=== PATIENT | male | born 1965 | race Caucasian/White ===

== ENCOUNTER 2024-04-06 04:54 | Emergency (ER) | payer OTHER, SELFPAY ==
--- OUTSIDE RECORDS SUMMARY | 2024-04-06 04:57 | XMS_ITS | Clinical Summary ---
Author Organization [facility] Address [address] [place] [id number] Care Team Providers Care Apparatus Operator Name Role Phone Pcp, No Unavailable Unavailable Pcp, No Primary Care Provider Unavailabl e Allergies No known active allergies Medications nicotine 14 mg/24 hr (NICODERM; HABITROL) 14 mg/24 hr patchIndicatio ns:Smoker Apply 1 Patch on dry, clean, hairless skin once daily. For six weeks then decrease to 7mg patch 42 Patch 8 Active HYDROcodone-ac etaminophen, 5-325 mg, (NORCO) per tabletIndicati ons:Acute left-sided low back pain without sciatica Take 1 tablet by mouth every 4 hours if needed for Pain Max acetaminophen dose: 4000 mg in 24 hrs. 12 tablet 8 Active Active Problems No known active problems Immunizations Name Administration Dates Next Due Tdap 05/05/2012 Family History Medical History Relation Name Comments Cancer Father lung Good Health Mother Relation Name Status Comments Father Mother Social History Tobacco Use Types Packs/Day Years Used Date Smoking Tobacco: Every Day Cigarettes 1 5 Smokeless Tobacco: Never Tobacco Cessation:Ready to Q uit: No; Counseling Given: Yes Alcohol Use Standard Drinks/Week Comments Yes 0 (1 standard drink = 0.6 oz pur e alcohol) rare Interpersonal Safety Answer Date Record ed Are you being hit, kicked, p ushed or yelled at (see row info)? 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 Gender Identity Not on file Sexual Orientation Not on file Obstetrics History Last Filed Vital Signs Vital Sign Reading Time Taken Comments Blood Pressure 143/87 09/24/2023 6:00 AM CDT Pulse 81 09/24/2023 6:00 AM CDT Temperature 37 C (98.6 F) 09/23/2023 11:42 PM CDT Respiratory Rate 20 09/23/2023 11:48 PM CDT Oxygen Saturation 96% 09/24/2023 6:00 AM CDT Inhaled Oxygen Concentration - - Weight 78.5 kg (173 lb) 09/23/2023 11:42 PM CDT Height 172.7 cm (5' 8) 09/23/2023 11:42 PM CDT Body Mass Index 26.3 09/23/2023 11:42 PM CDT Plan of Treatment Health Maintenance Due Date Last Done Comments Depression screening for age 12+ 1977 HIV for age 15-65 1980 Hepatitis C screening for age 18-79 08/29/1983 Colonoscopy through age 75 2010 Lipids for age 45-75 2010 Pneumococcal series for age 50+ (1 of 1 - PCV) 016 Zoster (shingles) series for age 50+ (1 of 2) 08/29/19 16 BMI (ht and wt on same day) for age 18+ 06/23/2018 0 06/23/2017 Tetanus booster 05/05/2022 05/05/2012 COVID-19 vaccine series ( season) 4 Influenza for age 50-64 10/10/2023 Tdap Completed 05/05/2012 Insurance [facility] Care Teams Apparatus Operator Relationship Specialty Start Date End Date Pcp, No . PCP - General 08/20/22 Pcp, No . 02/25/11
[2024-04-06 05:01] VITALS: BP 164/89; PULSE 95; RESP 18; TEMP 36.9; O2SAT 96; BMI 25.8
--- OUTSIDE RECORDS SUMMARY | 2024-04-06 05:39 | XMS_ITS | Clinical Summary ---
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 PCP - General 08/20/22 Pcp, No . 02/25/11
[2024-04-06 05:54] LABS: Basophils Absolute Auto 0.02 K/uL (0.00-0.30); Basophils Percent Auto 0.3 % (0.0-3.0); Eosinophils Absolute Auto 0.09 K/uL (0.00-0.50); Eosinophils Percent Auto 1.3 % (0.0-7.0); Hemoglobin* 15.2 gm/dL (13.5-17.5); Immature Granulocytes Abs Auto 0.01 K/uL (0.00-0.30); Immature Granulocytes Pct Auto 0.1 %; Lymphocytes Percent Auto 22.3 % (20-44); Mean Corpuscular HGB Conc 34 gm/dL (32-36); Mean Corpuscular Hemoglobin 29 pg (26-34); Mean Corpuscular Volume 86 fL (80-100); Monocytes Percent Auto 9.1 % (0.0-11.0); Neutrophils Absolute Auto 4.51 K/uL (1.7-7.0); Neutrophils Percent Auto 66.9 % (42.0-72.0); Platelet Count* 222 K/uL (140-440); RDW Coefficient of Variation % 12.9 % (11.5-15.5); Red Blood Count 5.24 m/uL (4.30-5.90); White Blood Count* 6.74 K/uL (4.50-11.00)
[2024-04-06 05:56] LABS: Slide Review Reflex No
[2024-04-06 05:59] LABS: Creatinine, Point-of-Care* 0.7 mg/dl (0.6-1.3)
[2024-04-06 06:00] VITALS: TEMP 36.9
[2024-04-06] MEDS: CYCLOBENZAPRINE HCL 10 MG TABLET PO (06:00)
[2024-04-06] MEDS: TRAMADOL HCL 50 MG TABLET PO (06:00)
[2024-04-06] MEDS: ACETAMINOPHEN 500 MG TABLET 1000 MG PO (06:00)
[2024-04-06] MEDS: DOXYCYCLINE HYCLATE 100 MG PO (06:00)
[2024-04-06] MEDS: SULFA/TRIMETHOPRIM 800/160 1 TAB PO (06:00)
--- NOTE | 2024-04-06 06:00 | ED_ITS ---
HPI - General Adult General Chief complaint: Skin/Abscess/Foreign Body Stated complaint: Scalded R foot on 03/31/24 Time Seen by Provider: 04/06/24 05:10 Source: patient and family Mode of arrival: ambulatory Limitations: no limitations History of Present Illness HPI narrative: 58-year-old male presents the emergency department 6 days after he burned the top of his right foot. Noticing increasing redness, worried about infection. Foot is painful, has been taking 6 Aleve per day with minimal relief. No history of peripheral vascular disease but he is a pack-a-day smoker for many decades. Denies any long-term health problems, no prescription medications. Does not get regular physicals. No allergies. marked an area of upper cellulitis on his leg 2 days ago, could not convince him to seek treatment until the wee hours of the morning now. Redness seems to be increasing. Initially started as a small area on the top of the foot which he burned on hot liquid. Initially blistered and is now crusted over. He is not doing any topical treatments. No fevers, no systemic weakness, nausea or other signs of major illness. No prior history of surgery or major injury to the foot or ankle. Benign past medical history but does not typically seek medical care. Smoker. No history of known vascular disease. Not immunocompromised no long-term medications or allergies. ROS is notable for the skin and musculoskeletal symptoms in the foot only, otherwise denies times 12. Related Data Previous Rx's ?Medication ?Instructions ?Recorded cyclobenzaprine 10 mg tablet 10 mg PO HS PRN muscle spasm #14 04/06/24 tabs doxycycline hyclate 100 mg capsule 100 mg PO BID #20 caps 04/06/24 sulfamethoxazole 800 1 tab PO BID 10 days #20 tabs 04/06/24 mg-trimethoprim 160 mg tablet (Bactrim DS) Allergies Allergy/AdvReac Type Severity Reaction Status Date / Time No Known Drug Allergies Allergy Verified 04/06/24 05:04 [facility] Medical History No significant past medical history Surgical History History of hernia repair ?Z98.890 - Other specified postprocedural states (ICD-10) ?Z87.19 - Personal history of other diseases of the digestive system (ICD-10) Social History Smoking Status: Current every day smoker Second hand tobacco smoke exposure: Yes How often do you have a drink containing alcohol: never AUDIT-C Alcohol total score: 0 Non-prescribed substance use: denies use Exam Const: Vital Signs, click to edit/add: Vital Signs - 24 hr 04/06/24 05:01 Temperature 98.5 F Pulse Rate [Right Pulse Oximeter] 95 Respiratory Rate 18 Blood Pressure [Ri ght Upper Arm] 164/89 H Pulse Oximetry 96 Oxygen Delivery Me thod Room Air Documenting provider has reviewed patient's vital signs: yes Common normals: no apparent distress and alert General appearance: cooperative, comfortable and well kempt Other: Nontoxic appearing, good historian. HENMT: Common normals: normocephalic and moist oral mucous membranes Head and scalp: normocephalic Eye: Common normals: conjunctivae normal General eye: normal appearance of both eyes Conjunctiva: conjunctiva(e) normal Neck & C-Spine: General: normal visual inspection Resp: Common normals: normal respiratory effort, no use of accessory muscles and clear to auscultation bilaterally Effort & inspection: able to speak in complete sentences Auscultation: clear to auscultation bilaterally Cardio: Common normals: regular rate and regular rhythm Rate: regular rate Rhythm: regular rhythm Other: 2+ dorsalis pedis pulses, good capillary refill in all toes. Extremity: Other: Right foot examined, normal range of motion in ankle, toes. Mild swelling with moderate erythema noted to the top of the foot with an area of cellulitis that extends there the midfoot, hindfoot and slightly up the anterior tibia area. Area is marked. Excellent dorsalis pedis pulses. There is a 4 x 3 cm area of second-degree burn, full-thickness present with some overlying granulation tissue. No active bleeding. No drainage. No unusual odor. Good capillary refill in all the toes, toes at this point are unaffected. Neuro: Common normals: moves all extremities and no focal motor deficits Sensorium/orientation: alert Speech: speech normal Psych: Appearance: well kempt Attitude: engaged Mood and affect: euthymic mood Insight: fair Judgement: fair Skin: Narrative: Other than the skin lesions to the right foot, no other areas appreciated. Course Course ED Course: 58-year-old male with cellulitis secondary to a second-degree burn on the top of his right foot, delayed treatment, 6 days post injury. Signs of cellulitis and infection but no signs of sepsis. Patient is a chronic smoker, does not seek medical care and has an elevated blood pressure. Because of this I do obtain a point of care creatinine so that I would know that it is safe to dose bone antibiotics like Bactrim. I do not think that he will do well taking a med ication like Keflex 4 times daily and would like to simplify the regimen. For pain, will give cyclobenzaprine 10 mg, 1000 mg of Tylenol and 50 of tramadol. Forty care creatinine is reassuring at 0.7. Will start patient on Bactrim DS twice daily for 10 days and doxycycline 100 mg twice daily for 10 days, 1st dose of both given in ED. area of cellulitis is marked, patient is counseled on signs and symptoms of sepsis. It may take 24 hours for the antibiotics to start to kick in. HEENT to keep the injured area elevated for at least the next 30 hours. Off of work for the next day and a half, may return Wednesday if feeling better. Wound his exam and then covered in antibiotic ointment, gauze pads and gauze wrap and then an Barber bandage. Family is instructed on wound care and cleansing schedule. If he does not have marked improvement in 48 hours, re- evaluation in clinic, urgent care or emergency department. Alarm symptoms reviewed that would warrant immediate ED referral. Written instructions provided, a verbalizes understanding and agreement. Vital Signs Vital signs: Initial Vital Signs Temperature 98.5 F 04/06/24 05:01 Temperature Source Temporal Artery Scan 04/06/24 05:01 Pulse Rate 95 04/06/24 05:01 Respiratory Rate 18 04/06/24 05:01 Blood Pressure 164/89 H 04/06/24 05:01 Blood Pressure Mean 114 H 04/06/24 05:01 Blood Pressure Position Sitting 04/06/24 05:01 Pulse Oximetry 96 04/06/24 05:01 Oxygen Delivery Method Room Air 04/06/24 05:01 Vital Signs Temperature 98.5 F 04/06/24 05:01 Pulse Rate 95 04/06/24 05:01 Respiratory Rate 18 04/06/24 05:01 Blood Pressure 164/89 H 04/06/24 05:01 Pulse Oximetry 96 04/06/24 05:01 Oxygen Delivery Method Room Air 04/06/24 05:01 Temperature 98.5 F 04/06/24 05:01 Pulse Rate 95 04/06/24 05:01 Respiratory Rate 18 04/06/24 05:01 Blood Pressure 164/89 H 04/06/24 05:01 Pulse Oximetry 96 04/06/24 05:01 Oxygen Delivery Method Room Air 04/06/24 05:01 Medical Decision Making Lab Data Lab results reviewed: Yes I reviewed the patient's lab results Labs: Lab Results 04/06/24 04/06/24 Range/Units 05:45 05:59 WBC 6.74 (4.50-11.00) K/uL RBC 5.24 (4.30-5.90) m/uL Hgb 15.2 (13.5-17.5) gm/dL Hct 45.0 (37.0-53.0) % MCV 86 (80-100) fL MCH 29 (26-34) pg MCHC 34 (32-36) gm/dL RDW Coeff of Misti 12.9 (11.5-15.5) % Plt Count 222 (140-440) K/uL Neut % (Auto) 66.9 (42.0-72.0) % Lymph % (Auto) 22.3 (20-44) % Fulton % (Auto) 9.1 (0.0-11.0) % Eos % (Auto) 1.3 (0.0-7.0) % Baso % (Auto) 0.3 (0.0-3.0) % Neut # (Auto) 4.51 (1.7-7.0) K/uL Lymph # (Auto) 1.50 (0.90-2.90) K/uL Fulton # (Auto) 0.60 (0.00-0.90) K/UL Eos # (Auto) 0.09 (0.00-0.50) K/uL Baso # (Auto) 0.02 (0.00-0.30) K/uL Abs Immat Gran (auto) 0.01 (0.00-0.30) K/uL Imm/Tot Granulo (auto) 0.1 % POC Creatinine 0.7 (0.6-1.3) mg/dl Discharge Plan Discharge Clinical Impression: Second degree burn of foot, Cellulitis Patient Disposition: Home w/ Parent or Adult Condition: Stable Instructions: Cellulitis (ED) Additional Instructions: As we discussed, I am also concerned about infection in the foot as are you. Unfortunately, with a history of smoking, the blood vessels in your legs and feet are often a little bit damaged. It would not give you any symptoms except increasing your risk of infection. This does decrease the chance of my antibiotics penetrating easily also and does increase your risk of complications from this infection. The large blister is a second-degree burn. There does not seem to be significant involvement in the muscles or tendon which is reassuring. The nerves also seem to have been spared which is good news also. I have marked the area of cellulitis which is the skin infection. The redness may create pass this at times based on how much you are resting and elevating the foot or not. If you are not starting to notice improvement of the redness within 48 hours, you need prompt re-evaluation. Fevers, severe weakness would also be a concerning sign that would warrant re-evaluation. I am starting you on 2 antibiotics. He will take both of them 2 times daily. They may be taken together. Your 1st dose was given here in the emergency department. Take your next dose this evening. As for the 3rd dose, you do not need to wake up early to take it, just then set your self on a schedule where you are dosing them as close to 12 hours apart as is reasonably possible. For pain, Aleve is tricky because it can affect your stomach and kidneys in a negative fashion if you are using too much. I would prefer that you use Tylenol 1000 mg every 6 hours. You may continue taking the Aleve but limited to a total of 5 tablets per day, no more. Will give a prescription for a muscle relaxant, cyclobenzaprine also known as Flexeril to use at bedtime to help you sleep as well. It may cause a little bit of drowsiness but it is non addictive. Remember not to take additional ibuprofen when you are taking the Aleve as they work in a similar fashion and using the 2 together well cause damage to your stomach and kidneys. It is important that you are resting and elevating for the next 36 hours. No work until Wednesday. As per wound care, please leave the blister covering in place. Do not apply any alcohol, peroxide or other skin damaging agents to this wound. Once daily, wash with gentle soap, warm water and a clean cloth. You do not need to scrub the wound. After washing, once completely dry, apply a generous layer of Vaseline or antibiotic ointment over the blistered area then cover with squares of gauze. You can get these at any pharmacy. We used the 2 x 2 in size. I would then like for you to use a small layer of gauze wrap to keep the gauze pads in place. You can get this at any pharmacy also. We used the 2 in wide, but the 3 in wide would be okay also. For the next couple days, use the Barber wrap provided. Once things start to heal better, you can move to a clean sock instead of the Barber wrap. Activity Level: Activity as Tolerated Discharge Diet: Regular Prescriptions: New cyclobenzaprine 10 mg tablet 10 mg PO HS PRN (Reason: muscle spasm) Qty: 14 0RF doxycycline hyclate 100 mg capsule 100 mg PO BID Qty: 20 0RF sulfamethoxazole-trimethoprim [Bactrim DS] 800-160 mg tablet 1 tab PO BID 10 Days Qty: 20 0RF Stand Alone Forms: MyHealth Info Instructions
[2024-04-06 06:03] VITALS: BP 145/78; PULSE 89; RESP 18; TEMP 36.9; O2SAT 96
[2024-04-06 06:05] VITALS: BP 145/78; PULSE 89; RESP 18; TEMP 36.9
== END 2024-04-06 06:32 | disposition home or self-care (01) ==
PROVIDERS: Emergency Provider Family Medicine
DX: T25.221A Burn of second degree of right foot, initial encounter (principal); X12.XXXA Contact with other hot fluids, initial encounter
CPT/HCPCS: 36415; 82565; 85025; 99284; A9270